=== PATIENT | male | born 1965 ===

== ENCOUNTER 2018-09-09 12:01 | Outpatient (CLI) | payer BC ==
[~2018-09-09] VITALS: Ht 175.3 cm; Wt 103.4 kg
[2018-09-09] MEDS ORDERED: FISH1CAP15 PO (12:17)
[2018-09-09] MEDS ORDERED: MULT-974 PO (12:17)
[2018-09-09] MEDS ORDERED: GLUC-116 PO (12:17)
[2018-09-09] MEDS ORDERED: ASCO500T6 PO (12:17)
[2018-09-09] MEDS ORDERED: ACET-2650 PO (12:17)
[2018-09-09 12:21] VITALS: BP 130/83
--- NOTE | 2018-09-09 12:42 | Diagnostic Imaging Report ---
INDICATION: Preoperative evaluation for total right knee replacement. COMPARISON: None. FINDINGS: Frontal and lateral views of the chest demonstrate normal heart size and pulmonary vascularity. The lungs are clear. There are no signs of infiltrate, pleural effusions or pneumothoraces. The visualized osseous structures show no acute abnormalities. IMPRESSION: 1. No acute process. No signs of infiltrates, effusions or pneumothoraces. Dictated by: Dictated on workstation # [id number]
[2018-09-09 13:08] LABS: BILIRUBIN,URINE NEGATIVE (NEGATIVE); CLARITY,URINE CLEAR; COLOR,URINE YELLOW; GLUCOSE, URINE (UA) NEGATIVE (NEGATIVE); KETONES,URINE NEGATIVE (NEGATIVE); LEUKOCYTE ESTERASE ,URINE NEGATIVE (NEGATIVE); NITRITE,URINE NEGATIVE (NEGATIVE); PH,URINE 7 (5-9); PROTEIN,URINE NEGATIVE (NEGATIVE); UROBILINOGEN,URINE NORMAL (NORMAL)
[2018-09-09 13:09] LABS: BASOPHILS % (AUTO) 0 % (0-10); EOSINOPHILS # (AUTO) 0.3 10^3/uL (0.0-0.3); EOSINOPHILS % (AUTO) 4 % (0-10); HEMATOCRIT 46 % (40-54); HEMOGLOBIN 16.3 G/DL (13.3-17.7); LYMPHOCYTES # (AUTO) 3.1 X 10^3 (1.0-4.0); LYMPHOCYTES % (AUTO) 36 % (12-44); MEAN CORPUSCULAR HEMOGLOBIN 33 PG (25-34); MEAN CORPUSCULAR HGB CONC 35 G/DL (32-36); MEAN CORPUSCULAR VOLUME 93 FL (80-99); MEAN PLATELET VOLUME 9.2 FL (7.4-10.4); MONOCYTES # (AUTO) 0.4 X 10^3 (0.0-1.0); MONOCYTES % (AUTO) 5 % (0-12); NEUTROPHILS # (AUTO) 4.8 X 10^3 (1.8-7.8); NEUTROPHILS % (AUTO) 55 % (42-75); PLATELET COUNT 258 10^3/uL (130-400); RED CELL DISTRIBUTION WIDTH 13.2 % (10.0-14.5); WHITE BLOOD COUNT 8.7 10^3/uL (4.3-11.0)
[2018-09-09 13:19] LABS: INR 0.9 (0.8-1.4); PROTHROMBIN TIME PATIENT 12.1 SEC (12.2-14.7)
[2018-09-09 13:26] LABS: ALANINE AMINOTRANSFERASE 68 U/L (0-55); ALBUMIN 4.6 GM/DL (3.2-4.5); ALKALINE PHOSPHATASE 97 U/L (40-136); BILIRUBIN,TOTAL 0.5 MG/DL (0.1-1.0); BUN/CREATININE RATIO 19; CALCIUM 9.8 MG/DL (8.5-10.1); CARBON DIOXIDE 22 MMOL/L (21-32); CHLORIDE 108 MMOL/L (98-107); CREATININE SERUM 0.93 MG/DL (0.60-1.30); GFR ESTIMATED > 60; GLUCOSE 92 MG/DL (70-105); POTASSIUM 4.1 MMOL/L (3.6-5.0); SODIUM 139 MMOL/L (135-145); TOTAL PROTEIN 7.7 GM/DL (6.4-8.2)
[2018-09-09 13:28] LABS: AMORPHOUS SEDIMENT,UR FEW AMOR URATES /LPF; BACTERIA,URINE NEGATIVE /HPF
[2018-09-09 13:41] LABS: ERYTHROCYTE SEDIMENTATION RATE 4 MM/HR (0-30)
== END 2018-09-09 16:00 | disposition home or self-care (01) ==
LOC: PREOP 12:01
PROVIDERS: ATTEND Orthopaedic Surgery
DX: Z01.811 Encounter for preprocedural respiratory examination (principal); Z01.812 Encounter for preprocedural laboratory examination; Z11.2 Encounter for screening for other bacterial diseases; M17.11 Unilateral primary osteoarthritis, right knee; R53.83 Other fatigue
CPT/HCPCS: 36415; 71046; 80053; 81000; 85025; 85610; 85652; 86850; 86900; 86901; 87081

== ENCOUNTER 2018-09-15 06:00 | Inpatient (IN) | payer BC ==
--- NOTE | 2018-09-06 11:13 | HISTORY AND PHYSICAL ---
DATE OF SERVICE: 09/15/2018 DATE OF ADMISSION: 09/15/2018. This will be for inpatient admission on 09/15/2018 for right total knee arthroplasty. The patient will require regular inpatient admission due to pain management, gait abnormalities, weakness and need for physical therapy. HISTORY OF PRESENT ILLNESS: The patient is a 52-year-old gentleman with complaints of progressive worsening right knee pain. He has undergone arthroscopy in the past. He has also undergone injections with only temporary relief of the symptoms. He reports functional impairment in his knee. He reports no improvement with conservative measures and because of this, he has elected to proceed with surgical intervention. Radiographs reveals complete loss of medial joint space with moderate patellofemoral joint space narrowing and mild lateral joint space narrowing. REVIEW OF SYSTEMS: No chest pain, no shortness of breath. No dysuria. PAST MEDICAL HISTORY: Hyperlipidemia, sleep apnea. PAST SURGICAL HISTORY: Right knee arthroscopy and left toenail excision. FAMILY HISTORY: Significant for Parkinson's, coronary atherosclerosis, no local physician. MEDICATIONS: None. ALLERGIES: None. SOCIAL HISTORY: The patient denies alcohol and tobacco use. PHYSICAL EXAMINATION: GENERAL: The patient is well developed, well-nourished, in no acute distress. HEENT: Normocephalic, atraumatic. Pupils equal, round and reactive to light. Oropharynx is clear. NECK: Supple, no lymphadenopathy. LUNGS: Clear to auscultation bilaterally. HEART: Regular rate and rhythm. ABDOMEN: Soft, nontender, nondistended. EXTREMITIES: The patient ambulates with an antalgic gait on the right. He is tender along his medial joint line and the right knee has a slight effusion. Range of motion is 0/0/130. He has pain medially with Scott's. Negative straight leg raise. No skin lesions. He is ligamentously stable in all planes. IMPRESSION: Right knee osteoarthritis, unresponsive to conservative measures. PLAN: Right total knee arthroplasty. The risks, benefits, options, ramifications and recovery were discussed at length with the patient. He understands and wishes to proceed. Job ID: [id number] DocumentID: [id number] Dictated Date: 09/06/2018 09:48:44 Beef Skinner Date: 09/06/2018 11:13:26 Dictated By: CAMACHO CASILLAS MD
[~2018-09-15] VITALS: Ht 175.3 cm; Wt 99.1 kg
[2018-09-15 06:00] VITALS: BP 130/88
[~2018-09-15 06:00] MED LIST: ACET-2650 PO; ASCO500T6 PO; FISH1CAP15 PO; GLUC-116 PO; MULT-974 PO
[2018-09-15] MEDS: LACTATED RINGERS 1,000 ML IV PRN ×2 (06:15→08:00)
[2018-09-15 06:25] VITALS: BP 130/88
[2018-09-15] MEDS ORDERED: CEFUROXIME INJECTION 1,500 MG in WATER (STERILE) FOR INJECTION 15 ML IV ONE (06:45)
[2018-09-15] MEDS ORDERED: fentaNYL INJECTION 100 MCG/2 ML AMP ONE ×2 (06:51→07:58)
[2018-09-15] MEDS ORDERED: MIDAZOLAM 2 MG/2 ML (VERSED) VIAL ONE (06:51)
[2018-09-15] MEDS ORDERED: LIDOCAINE PF 2% 5 ML (XYLOCAINE) VIAL ONE (06:51)
[2018-09-15] MEDS ORDERED: SEVOFLURANE (ULTANE) 15 ML INHAL SOLN ONE ×6 (06:51→09:10)
[2018-09-15] MEDS ORDERED: ONDANSETRON 4 MG/2 ML (SDV) Z0FRAN ONE (06:51)
[2018-09-15] MEDS ORDERED: DEXAMETHASONE 10 MG/ML (DECADRON) 1 ML VIAL ONE (06:51)
[2018-09-15] MEDS ORDERED: proPOfol 200 MG/20 ML (DIPRIVAN) VIAL IV ONE (06:51)
[2018-09-15] MEDS ORDERED: TRANEXAMIC ACID 100 MG/ML 10 ML INJECTION IV ONE (06:51)
[2018-09-15] MEDS ORDERED: BUPIVACAINE 0.5% 30 ML (SENSORCAINE) VIAL ONE (07:22)
--- NOTE | 2018-09-15 07:27 | Progress Note-Pre Operative ---
Pre-Operative Progress Note H&P Reviewed The H&P was reviewed, patient examined and no changes noted. Date Seen by Provider: Sep 15, 2018 Time Seen by Provider: 07:15 Date H&P Reviewed: Sep 15, 2018 Time H&P Reviewed: 07:11 Pre-Operative Diagnosis: right knee primary osteoarthritis CAMACHO CASILLAS MD Sep 15, 2018 07:27
--- NOTE | 2018-09-15 07:28 | Progress Note-Post Operative ---
Post-Operative Progess Note Surgeon (s)/Buttermilk Drier Operator (s) Surgeon CAMACHO CASILLAS MD Buttermilk Drier Operator: French Chavez Pre-Operative Diagnosis right knee primary osteoarthritis Post-Operative Diagnosis right knee primary osteoarthritis Procedure & Operative Findings Date of Procedure 09/15/18 Procedure Performed/Findings right total knee arthroplasty Anesthesia Type GETA Estimated Blood Loss Estimated blood loss (mL): minimal Specimens/Packing Specimens Removed none Packing: none CAMACHO CASILLAS MD Sep 15, 2018 07:28
[2018-09-15] MEDS ORDERED: OXYC1TAB87 PO (07:29)
[2018-09-15] MEDS ORDERED: ONDANSETRON 4 MG/2 ML (SDV) Z0FRAN IVP PRN ×2 (07:30→09:15)
[2018-09-15] MEDS ORDERED: diphenhydrAMINE 50 MG/ML INJ (BENADRYL) IVP PRN (07:30)
[2018-09-15] MEDS ORDERED: ACETAMINOPHEN 325 MG TABLET PO PRN (07:30)
[2018-09-15] MEDS ORDERED: INTRA-ARTICULAR IU ONE ×5 (07:30)
[2018-09-15] MEDS ORDERED: morphine PCA 100 MG/100 ML BAG IV PRN (07:30)
--- NOTE | 2018-09-15 07:32 | D/C HH Face to Face Order ---
D/C Face to Face Orders Instructions for Patient Via [facility], Patient Instructions/FollowUp: three weeks Physician to follow Patient: three weeks Discharge Diet for Home: Regular Diet Patient Data-Allergies,Ht & Wt Patient Allergies: Coded Allergies: No Known Drug Allergies (Unverified , 09/09/18) Height (Feet): 5 Height (Inches): 9.00 Weight (Pounds): 218 Weight (Ounces): 6.0 Home Health Need/Face to Face Date of Face to Face: Sep 15, 2018 Clinical Findings: Instability, Muscle weakness, Non or partial weight bearing , Pain with ambulation, Unsteady gait I have seen Pt [id number]: Yes Discharged To: Home Diagnosis/Conditions: right total knee arthroplasty Patient is Homebound due to: Larry fall risk due to instabilty, Muscle weakness , Pain w/ambulation Homebound Status Due to the above stated illness, injury or surgical procedure (medical condition or diagnosis) and associated clinical findings, the patient is homebound because of his/her inability to leave home except with aid of a supportive device and/or person AND leaving the home requires a considerable and taxing effort or is medically contraindicated. Pt req the following assistanc: Walker Home Health Nursing Orders Home Health Services Order: Physical Therapy-Evaluate & Treat DC right knee cristiano and apply steri strips 09/29/18 Home Health Infusion Therapy Line Start Date: Sep 15, 2018 Line Start Time: 06 Line Type: Peripheral IV Site Location: Hand Therapy Orders Therapy Orders: Physical Therapy, PT to assess for OT Therapy Specific Orders: Eval assistive deivces, Teach enviro modifications/ safety, Gait training, Increase strength/endurance, Provider maintenance therapy , Restore ROM Certify Stmt I certify that this patient is under my care and that I, a nurse practitioner or a physician; a field research assistant working with me, had a face to face encounter that - meets the physician face to face encounter requirements with this patient as dated. CAMACHO CASILLAS MD Sep 15, 2018 07:32
[2018-09-15] MEDS ORDERED: RT-ALBUTEROL HFA (VENTOLIN) PER PUFF IH ONE (08:11)
[2018-09-15] MEDS ORDERED: morphine INJ 10 MG/ML 1ML (SYR OR VIAL) IVP ONE (09:15)
[2018-09-15] MEDS ORDERED: morphine INJ 10 MG/ML 1ML (SYR OR VIAL) ONE (09:18)
[2018-09-15] MEDS ORDERED: MEPERIDINE (DEMEROL) INJ 50 MG/ML ONE (09:21)
--- NOTE | 2018-09-15 10:04 | Diagnostic Imaging Report ---
INDICATION: Status post right knee replacement COMPARISON: None. FINDINGS: Two views of the right knee were obtained. Expected postoperative changes are seen from right knee total arthroplasty. Femoral and tibial components appear well-seated. There is no evidence of periprosthetic fracture. There is a small amount of subcutaneous emphysema in the soft tissues over the knee. Skin cristiano are seen centrally over the anterior aspect of the knee. No unexpected radiopaque foreign bodies are identified. IMPRESSION: Expected postsurgical changes from right knee total arthroplasty, as described above. No unexpected radiopaque foreign bodies. Dictated by: Dictated on workstation # [id number]
--- NOTE | 2018-09-15 10:14 | Progress Note-Standard ---
Standard Progress Note Progress Notes/Assess & Plan Date Seen by a Provider: Sep 15, 2018 Time Seen by a Provider: 10:01 Progress/Assessment & Plan post op check no complaints radiographs--HW well positioned without fracture RLE-- 2 plus DP pulse with brisk cap refill. Sensation intact throughout. Intact DF and PF of toes and ankle s/p RTKA mobilize as able CAMACHO CASILLAS MD Sep 15, 2018 10:14
[2018-09-15] MEDS: SENNA W/DOCUSATE (SENOKOT S) TABLET PO SCH ×2 (13:12→20:36)
--- NOTE | 2018-09-15 14:04 | OPERATIVE REPORT ---
DATE OF SERVICE: 09/15/2018 PREOPERATIVE DIAGNOSIS: Right knee primary osteoarthritis. POSTOPERATIVE DIAGNOSIS: Right knee primary osteoarthritis. PROCEDURE: Right total knee arthroplasty. SURGEON: Carlos Casillas MD MANAGER ASSET: CHEYENNE Diaz, who assisted throughout the procedure and closed the incision. ANESTHESIA: General endotracheal by Radha Oropeza CRNA. TOURNIQUET TIME: Approximately 65 minutes at 300 mmHg. ESTIMATED BLOOD LOSS: Minimal. DRAINS: None. COMPLICATIONS: None. POSTOPERATIVE PLAN: Routine protocol. MATERIALS: MicroPort cemented size 5 femur with cemented size 5 tibia and 10 mm insert and cemented size 32 patellar button. STATEMENT OF MEDICAL NECESSITY: The patient is a 52-year-old gentleman with long-standing progressive right knee pain, swelling, catching and locking. Radiographs revealed complete loss of medial and patellofemoral joint spaces. He has undergone treatment in the past with arthroscopy as well as injections, but reported progressive functional impairment and because of this, elected to proceed with surgical intervention. DESCRIPTION OF PROCEDURE: After risks and benefits of the procedure were discussed and questions were answered, an informed consent was signed and placed on chart, the operative site was confirmed in the preoperative holding area initialed by the surgeon. The patient was transferred to the operating room. After adequate levels of general endotracheal anesthetic were obtained, a timeout was called confirming the operative site. The right lower extremity was prepped and draped in the usual sterile fashion with the leg elevated and the knee flexed. Tourniquet was inflated to 300 mmHg. Standard anterior approach was utilized. Hemostasis was obtained with cautery and a medial parapatellar arthrotomy was performed leaving 1 cm cuff on the patella for later reattachment. A portion of the fat pad was resected and a subperiosteal release was performed in the proximal medial tibia being careful to stay on the bony surface. ACL was resected. Intramedullary guide was passed into the femur and the distal cutting block was placed. Distal cut was made and the femur was sized to a size 5. The 5 cutting block was placed parallel to the epicondylar axis and the cuts were made from posterior to anterior. A subperiosteal release was then carefully performed on the posterior distal femur, being careful to stay on the bony surface. Intramedullary guide was then passed into the tibia. The cutting block was placed and the drop venkatesh transected the intermalleolar axis. The cut was made. The five baseplate was placed and again the drop venkatesh transected the intermalleolar access. This was pinned into position and prepared with the drill and keel punch. The femoral trial was placed and the trochlear cut was made. A 10 mm insert trial was placed. The patella was prepared using the freehand technique by resecting 10 mm off the undersurface. The peg guide was placed and the peg holes were drilled. The knee was taken through a range of motion. Full extension was easily obtained greater than 120 degrees of flexion with gravity was easily obtained. There was no anterior/posterior or medial/lateral laxity in flexion or extension. The trials were removed. The joint was irrigated with pulse lavage. The periarticular block was placed in the posterior capsule, medial and lateral retinaculum extensor mechanism as well as the subcutaneous tissues. The bone ends were irrigated and dried and the tibial baseplate was cemented into position. Excess cement was removed. The superior surface was irrigated and dried and the polyethylene insert was placed. Distal femur was irrigated and dried and the femoral prosthesis was cemented into position to remove excess cement. The knee was brought out into full extension until the cement had cured. The undersurface of patella was irrigated and dried. The patellar button was cemented into position. Excess cement was removed. Once the cement had cured, the knee was taken through a range of motion with full extension easily obtained, 120 degrees of flexion with gravity was easily obtained. There was no anterior/posterior or medial/lateral laxity in flexion or extension. The joint was further irrigated with pulse lavage. Arthrotomy was closed with #2 Tevdek in [id number] interrupted fashion. The patella tracked well with no undue tension at the repair site. The subcutaneous tissues were irrigated using a total of 6 liters throughout the procedure. A 0 Vicryl was used for the deep subcutaneous tissue, 2-0 Vicryl for the superficial subcutaneous tissue, cristiano used on the skin. A soft dressing was applied. The tourniquet was deflated. The patient was transferred to recovery room awake and in stable condition. Job ID: [id number] DocumentID: [id number] Dictated Date: 09/15/2018 09:16:26 Student Development Specialist Date: 09/15/2018 14:03:13 Dictated By: CARLOS CASILLAS MD
--- NOTE | 2018-09-15 14:26 | Physical Therapy Evaluation ---
PT Evaluation-General Medical Diagnosis Admission Date Sep 15, 2018 at 06:00 Medical Diagnosis: right TKA Onset Date: Sep 15, 2018 Therapy Diagnosis Therapy Diagnosis: impaired mobility, strength, ROM, endurance Height/Weight Height (Feet): 5 Height (Inches): 9.00 Weight (Pounds): 218 Weight (Ounces): 6.0 Precautions Precautions/Isolations: Standard Precautions Referral Physician: French Chavez Reason for Referral: Evaluation/Treatment Medical History Additional Medical History PAST MEDICAL HISTORY: Hyperlipidemia, sleep apnea. PAST SURGICAL HISTORY: Right knee arthroscopy and left toenail excision. Reviewed History: Yes Social History Home: Single Level Current Living Status: Spouse Entry Into Home: Stairs With Railing PT Steps Into Home: 4 Prior/Core FIM Prior Level of Function Therapy Code Descriptions/Definitions Functional Divide Measure: 0=Not Assessed/NA 4=Minimal Assistance 1=Total Assistance 5=Supervision or Setup 2=Maximal Assistance 6=Modified Divide 3=Moderate Assistance 7=Complete Divide Therapy Quality Codes: 6 Independent with activity with or without an assistive device 5 Patient requires set up or clean up by helper. Patient completes activity by themselves 4 Supervision or touching assist (CGA). [place] provide cues , steadying assist 3 The helper provides less than half the effort to complete the activity 2 The helper provides more than half the effort to complete the activity 1 Dependent. The helper does all the effort to complete an activity 7 Patient refused to complete or attempt activity 9 The patient did not perform the activity before the current illness or injury 88 Not attempted due to Medical conditions or safety concerns Functional Abilities and Goals: Independent: Patient completed the activities by him/herself, with or without an assistive device, with no assistance from a helper. Needed Some Help: Patient needed partial assistance from another person to complete activities. Dependent: A helper completed the activities for the patient. Unknown: Not Applicable: Bed Mobility: 7 Transfers (B,C,W/C) (FIM): 7 Gait: 7 Stairs: 7 Indoor Mobility (Ambulation): Independent Stairs: Independent PT Evaluation-Current Subjective Patient in bed pre tx, agrees to PT, has pain of 4/10 in right knee. Pt/Family Goals to be independent at home Objective Patient Orientation: Person, Place, Situation Attachments: SCD's, Polar Pack, IV ROM/Strength ROM Lower Extremities right knee extension +5 degrees, flexion 70 degrees Strength Lower Extremities NT Neuromuscular (Tone, Coordination, Reflexes) NT Sensory Vision: Functional Hearing: Functional Sensation Right Lower Extremit: Intact Sensation Left Lower Extremity: Intact Transfers Therapy Code Descriptions/Definitions Functional Divide Measure: 0=Not Assessed/NA 4=Minimal Assistance 1=Total Assistance 5=Supervision or Setup 2=Maximal Assistance 6=Modified Divide 3=Moderate Assistance 7=Complete Divide Transfers (B, C, W/C) (FIM): 5 Scootin Rollin Supine to/from Sit: 5 Sit to/from Stand: 5 Gait Mode of Locomotion: Walk Anticipated Mode of Locomotion: Walk Gait (FIM): 5 Distance: 300' Gait Level of Assist: 5 Gait Persons Needed: 1 Gait Assistive Device: FWW Comments/Gait Description Patient ambulated 300' with a rolling walker with SBA. Brisk ambulation, good step-through, flexed right knee Balance Sitting Static: Normal Sitting Dynamic: Normal Standing Static: Good Standing Dynamic: Good Treatment supine total knee protocol x10 (AP, QS, HS, SAQ, SLR) Assessment/Needs Patient has impaired mobility, strength, endurance, ROM post right TKA. Patient in bed post tx with nurse call, phone, tray, all needs met. CPM donned and set to 60/-2 degrees and fit to leg. Polar care and SCD's on. Rehab Potential: Fair PT Short Term Goals Short Term Goals Time Frame: Sep 22, 2018 Transfers (B,C,W/C) (FIM): 6 Gait (FIM): 6 Gait Distance Comment: 400' Gait Level of Assist: 6 Gait Assistive Device: FWW PT Plan Problem List Problem List: Activity Tolerance, Functional Strength, Safety, Balance, Gait, Transfer, Bed Mobility, ROM Treatment/Plan Treatment Plan: Continue Plan of Care Treatment Plan: Bed Mobility, Education, Functional Activity Wesley, Functional Strength, Safety, Therapeutic Exercise, Transfers Treatment Duration: Sep 22, 2018 Frequency: 11 times per week Estimated Hrs Per Day: .25 hour per day (15-30') Patient and/or Family Agrees t: Yes Safety Risks/Education Patient Education: Gait Training, Transfer Techniques, Reviewed Use of Ice, Correct Positioning, W/C Management, Safety Issues Teaching Recipient: Patient Teaching Methods: Demonstration, Discussion Response to Teaching: Reinforcement Needed Discharge Recommendations Plan Patient will perform bed mobility and transfer training, balance and endurance training, functional strengthening, stair training, gait training, and education , to improve functional mobility and independence at home. Therapy D/C Recommendations: Home w/ Family Support Time/GCodes Time In: 1355 Time Out: 1415 Total Billed Treatment Time: 20 Total Billed Treatment 1 visit EVMark 20' LEO CALABRESE PT Sep 15, 2018 14:26
[2018-09-15] MEDS: CEFUROXIME INJECTION 750 MG in WATER (STERILE) FOR INJECTION 10 ML IV SCH ×2 (15:47→23:41)
--- NOTE | 2018-09-15 15:48 | NUR ---
Pt is Lutheran and declines sacraments. Supervisor [employer] offered blessing.
[2018-09-15 16:00] VITALS: BP 116/72
[2018-09-15 20:00] VITALS: BP 114/78
[2018-09-15] MEDS: NS IV 1000 ML 1,000 ML IV SCH ×2 (20:34→20:35)
[2018-09-15] MEDS: oxyCODONE/APAP 5/325MG (PERCOCET 5) TABLET PO PRN (23:40)
[2018-09-16 00:21] VITALS: BP 107/71
[2018-09-16] MEDS: NS IV 1000 ML 1,000 ML IV SCH ×2 (01:30→13:45)
[2018-09-16 04:00] VITALS: BP 114/60
[2018-09-16] MEDS: ENOXAPARIN 30 MG/0.3 ML (LOVENOX) SYR SC SCH ×2 (06:27→20:02)
[2018-09-16] MEDS: MULTIVIT W/MINERALS TAB (THERAGRAN M) PO SCH (06:28)
[2018-09-16 06:30] LABS: HEMOGLOBIN 12.3 G/DL (13.3-17.7)
--- NOTE | 2018-09-16 07:57 | Progress Note-Standard ---
Standard Progress Note Progress Notes/Assess & Plan Date Seen by a Provider: Sep 16, 2018 Time Seen by a Provider: 07:56 Progress/Assessment & Plan post op check no complaints radiographs--HW well positioned without fracture RLE-- 2 plus DP pulse with brisk cap refill. Sensation intact throughout. Intact DF and PF of toes and ankle s/p RTKA mobilize as able Final Diagnosis no complaints Vital Signs Date Time Temp Pulse Resp B/P (MAP) Pulse Ox O2 Delivery O2 Flow Rate FiO2 09/16/18 06:00 16 09/16/18 04:00 97.6 76 20 114/60 (78) 99 Room Air 09/16/18 03:08 95 NIV CPAP 09/16/18 00:21 97.4 74 20 107/71 (83) 97 Room Air 09/15/18 22:49 95 Room Air 09/15/18 20:30 96 Room Air 09/15/18 20:30 98 Room Air 09/15/18 20:00 99.1 90 18 114/78 (90) 95 Room Air 09/15/18 16:00 99.6 94 20 116/72 (87) 96 Room Air 09/15/18 10:20 98 Room Air 09/15/18 10:10 12 96 Room Air 09/15/18 10:00 10 98 Room Air 09/15/18 09:50 12 100 OxyMask 8 09/15/18 09:40 18 100 OxyMask 8 09/15/18 09:30 12 100 OxyMask 8 09/15/18 09:20 14 96 OxyMask 8 09/15/18 09:13 17 96 OxyMask 8 I & O 09/16/18 07:00 Intake Total 4275 ml Balance 4275 ml Laboratory Tests Test 09/16/18 06:15 Range/Units Hemoglobin 12.3 #L 13.3-17.7 G/DL Hematocrit 37 L 40-54 % RLE--NVI. Dressing intact. SLR with assistance. No calf tenderness s/p RTKA doing well continue PT/OT CAMACHO CASILLAS MD Sep 16, 2018 07:57
[2018-09-16 08:00] VITALS: BP 127/63
[2018-09-16] MEDS: ASPIRIN E.C. 81 MG (ECOTRIN) TAB PO SCH ×2 (08:34→08:35)
[2018-09-16] MEDS: SENNA W/DOCUSATE (SENOKOT S) TABLET PO SCH ×2 (08:35→20:02)
[2018-09-16] MEDS: oxyCODONE/APAP 5/325MG (PERCOCET 5) TABLET PO PRN ×4 (08:41→21:50)
--- NOTE | 2018-09-16 10:04 | Physical Therapy Daily Note ---
PT Daily Note-Current Subjective Patient is very agreeable to participate with PT. Pain Numeric Pain Scale: 5-Moderate Pain Location: Right Location Body Site: Knee Pain Description: Acute Mental Status Patient Orientation: Normal For Age Attachments: Polar Pack, IV Transfers Therapy Code Descriptions/Definitions Functional Barker Measure: 0=Not Assessed/NA 4=Minimal Assistance 1=Total Assistance 5=Supervision or Setup 2=Maximal Assistance 6=Modified [place] 3=Moderate Assistance 7=Complete Barker Therapy Quality Codes: 6 Independent with activity with or without an assistive device 5 Patient requires set up or clean up by helper. Patient completes activity by themselves 4 Supervision or touching assist (CGA). [place] provide cues , steadying assist 3 The helper provides less than half the effort to complete the activity 2 The helper provides more than half the effort to complete the activity 1 Dependent. The helper does all the effort to complete an activity 7 Patient refused to complete or attempt activity 9 The patient did not perform the activity before the current illness or injury 88 Not attempted due to Medical conditions or safety concerns Transfers (B, C, W/C) (FIM): 6 Scootin Supine to/from Sit: 6 Sit to/from Stand: 6 Gait Training Gait (FIM): 6 Distance (FIM): 3=150 ft Distance: 300' x 2 Gait Level of Assist: 6 Gait Assistive Device: FWW antalgic, reciprocal pattern with FWW Exercises Supine Ex: Ankle pumps, Quad Set, Heel Slides, Straight leg raise Supine Reps: 15 Seated Therapy Exercises: Long arc quads Seated Reps: 15 Assessment Patient tolerated treatment well and is on CPM 0-70 degrees with polar pack in place. PT Short Term Goals Short Term Goals Time Frame: Sep 22, 2018 Transfers (B,C,W/C) (FIM): 6 Gait (FIM): 6 Gait Distance Comment: 400' Gait Level of Assist: 6 Gait Assistive Device: FWW PT Plan Treatment/Plan Treatment Plan: Continue Plan of Care Treatment Plan: Bed Mobility, Education, Functional Activity Wesley, Functional Strength, Safety, Therapeutic Exercise, Transfers Treatment Duration: Sep 22, 2018 Frequency: 11 times per week Estimated Hrs Per Day: .25 hour per day (15-30') Patient and/or Family Agrees t: Yes Time/GCodes Time In: 830 Time Out: 900 Total Billed Treatment Time: 30 Total Billed Treatment 1 visit EX 18 min GT 12 min CORRIE EDWARDS PT Sep 16, 2018 10:04
[2018-09-16 12:00] VITALS: BP 127/68
--- NOTE | 2018-09-16 13:09 | Occupational Therapy Eval ---
OT Evaluation-General/PLF Medical Diagnosis Admission Date Sep 15, 2018 at 06:00 Medical Diagnosis: right TKA Onset Date: Sep 15, 2018 Therapy Diagnosis Therapy Diagnosis: weakness Height/Weight Height (Feet): 5 Height (Inches): 9.00 Weight (Pounds): 218 Weight (Ounces): 6.0 Precautions Precautions/Isolations: Fall Prevention, Standard Precautions Safety Interventions: None Weight Bear Status Weight Bearing Restriction: Weight Bearing/Tolerated Location Restriction: R LE Referral Physician: French Chavez Referral Reason: Activity Tolerance, Self Care, Evaluation/Treatment, Strengthening/ROM Referral Comments The patient is a 52-year-old gentleman with complaints of progressive worsening right knee pain. He has undergone arthroscopy in the past. Medical History Additional Medical History HLD, Sleep Apnea Current History Right Total Knee Arthroplasty. Reviewed History: Yes Social History Home: Single Level Current Living Status: Spouse Entry Into Home: Stairs With Railing Steps Into Home: 4 ADL-Prior Level of Function Therapy Code Descriptions/Definitions Functional [place] Measure: 0=Not Assessed/NA 4=Minimal Assistance 1=Total Assistance 5=Supervision or Setup 2=Maximal Assistance 6=Modified [place] 3=Moderate Assistance 7=Complete [place] Therapy Quality Codes: 6 Independent with activity with or without an assistive device 5 Patient requires set up or clean up by helper. Patient completes activity by themselves 4 Supervision or touching assist (CGA). [place] provide cues , steadying assist 3 The helper provides less than half the effort to complete the activity 2 The helper provides more than half the effort to complete the activity 1 Dependent. The helper does all the effort to complete an activity 7 Patient refused to complete or attempt activity 9 The patient did not perform the activity before the current illness or injury 88 Not attempted due to Medical conditions or safety concerns Functional Abilities and Goals: Independent: Patient completed the activities by him/herself, with or without an assistive device, with no assistance from a helper. Needed Some Help: Patient needed partial assistance from another person to complete activities. Dependent: A helper completed the activities for the patient. Unknown: Not Applicable: ADL PLOF Comments Pt was Independent in all ADLs & IADLs & Driving. Self Care: Needed Some Help Functional Cognition: Independent Drive Self: Yes OT Current Status Subjective Pt in bed , alert, oriented, cooperative , & agree for therapy . Pain Numeric Pain Scale: 3 Location: Right Location Body Site: Knee Pain Description: Dull, Pressure Mental Status/Objective Patient Orientation: Person, Place, Time Attachments: Polar Pack, Saline Lock, SCD's Current Glasses/Contacts: No Hearing Aids: No Dentures/Partials: No Hand Dominance: Right Upper Extremity ROM WFL Upper Extremity Coordination Intact Upper Extremity Sensation Intact Upper Extremity Strength MS in BUE 4+/5 grossly graded , Good physique . Hand delivery route driver -good. Endurance good. ADL-Treatment ADL-Current Pt participated in bed mobility, func transfers, toilet transfers & toilet hygiene, func ambulation with FWW & Strengthening ex to BUE. Therapy Code Descriptions/Definitions Functional [place] Measure: 0=Not Assessed/NA 4=Minimal Assistance 1=Total Assistance 5=Supervision or Setup 2=Maximal Assistance 6=Modified [place] 3=Moderate Assistance 7=Complete [place] Therapy Quality Codes: 6 Independent with activity with or without an assistive device 5 Patient requires set up or clean up by helper. Patient completes activity by themselves 4 Supervision or touching assist (CGA). [place] provide cues , steadying assist 3 The helper provides less than half the effort to complete the activity 2 The helper provides more than half the effort to complete the activity 1 Dependent. The helper does all the effort to complete an activity 7 Patient refused to complete or attempt activity 9 The patient did not perform the activity before the current illness or injury 88 Not attempted due to Medical conditions or safety concerns Eating (FIM): 7 Grooming (FIM): 7 Bathing (FIM): 0 Upper Body Dressing (FIM): 6 Lower Body Dressing (FIM): 5 Toileting (FIM): 5 Transfers (B, C, W/C) (FIM): 5 Toilet/Commode Transfer (FIM): 5 Tub Transfer (FIM): 0 Shower Transfer (FIM): 0 Education OT Patient Education: Correct positioning Teaching Recipient: Patient Teaching Methods: Demonstration Response to Teaching: Verbalize Understanding OT Short Term Goals Short Term Goals Time Frame: Sep 30, 2018 Transfers (B,C,W/C) (FIM): 6 Additional Short Term Goals: 1-Demonstrate ADL Tasks, 2-Verbalize Understanding , 3-ImproveStrength/[place] 1=Demonstrate adherence to instructed precautions during ADL tasks. 2=Patient will verbalize/demonstrate understanding of assistive devices/ modifications for ADL. 3=Patient will improve strength/tolerance for activity to enable patient to perform ADL's. OT Jail Goals Jail Goals Time Frame: October 14, 2018 Eating (FIM): 7 Grooming(FIM): 7 Bathing(FIM): 6 Bathing Location: L Arm, R Arm, L Upper Leg, R Upper Leg, L Lower Leg ( including foot), R Lower Leg (including foot), Chest, Abdomen, Buttocks, Perineal Area Upper Body Dressing(FIM): 6 Lower Body Dressing(FIM): 6 Toileting(FIM): 6 Transfers (B,C,W/C) (FIM): 6 Toilet/Commode Transfer(FIM): 6 Tub Transfer(FIM): 6 Shower Transfer(FIM): 6 Additional Goals: 1-Demonstrate ADL Tasks, 2-Verbalize Understanding, 3- ImproveStrength/[place] 1=Demonstrate adherence to instructed precautions during ADL tasks. 2=Patient will verbalize/demonstrate understanding of assistive devices/ modifications for ADL. 3=Patient will improve strength/tolerance for activity to enable patient to perform ADL's. OT Education/Plan Problem List/Assessment Assessment: Decreased Activ Tolerance, Decreased Safety Aware, Decreased UE Strength, Dependent Transfers, Impaired Bed Mobility, Impaired Funct Balance, Impaired Self-Care Skills Discharge Recommendations Plan/Recommendations: Continue POC Therapy D/C Recommendations: Home w/ Family Support Equpiment Recommendations-D/C: Masonry Installer, [place] Patient/Family Goals To return home Independently with . Treatment Plan/Plan of Care Treatment,Training & Education: Yes Patient would benefit from OT for education, treatment and training to promote independence in ADL's, mobility, safety and/or upper extremity function for ADL' s. Plan of Care: ADL Retraining, Functional Mobility, UE Funct Exercise/Act, UE Neuromus Re-Ed/Coord Treatment Duration: October 14, 2018 Frequency: 5 times per week Estimated Hrs Per Day: .5 hour per day Agreement: Yes Rehab Potential: Good Time/GCodes Start Time: 11:05 Stop Time: 11:30 Total Time Billed (hr/min): 25 Billed Treatment Time 1, EVM 12 min , Ex 13 min. Total 25 minutes ALEJANDRO CMLAUGHLIN OT Sep 16, 2018 13:09
--- NOTE | 2018-09-16 13:10 | NUR ---
IRF Evaluation: Order to evaluate patient for the ARU. Chart reviewed and it appears patient is ambulating (300ft x 2, FWW) and transferring with modified independence; therefore, patient does not require intensive therapies, at this time. Thank you for this referral.
--- NOTE | 2018-09-16 13:53 | Anesthesia-General Post-Op ---
General Patient Condition Mental Status/LOC: Same as Preop Cardiovascular: Satisfactory Nausea/Vomiting: Absent Respiratory: Satisfactory Pain: Controlled Complications: Absent Post Op Complications Complications None Follow Up Care/Instructions Patient Instructions None needed. Anesthesia/Patient Condition Patient Condition Patient is doing well, no complaints, stable vital signs, no apparent adverse anesthesia problems. Pt is having more pain today now that peripheral nerve block has worn off, which is expected. He is ambulating and doing well with his pain control. CECILLE FREITAS DO Sep 16, 2018 13:53
--- NOTE | 2018-09-16 13:53 | Physical Therapy Daily Note ---
PT Daily Note-Current Subjective Patient reports he just had a pain pill and agrees to PT. Pain Numeric Pain Scale: 5-Moderate Pain Location: Right Location Body Site: Knee Pain Description: Acute Mental Status Patient Orientation: Normal For Age Attachments: IV Transfers Therapy Code Descriptions/Definitions Functional [place] Measure: 0=Not Assessed/NA 4=Minimal Assistance 1=Total Assistance 5=Supervision or Setup 2=Maximal Assistance 6=Modified [place] 3=Moderate Assistance 7=Complete [place] Therapy Quality Codes: 6 Independent with activity with or without an assistive device 5 Patient requires set up or clean up by helper. Patient completes activity by themselves 4 Supervision or touching assist (CGA). [place] provide cues , steadying assist 3 The helper provides less than half the effort to complete the activity 2 The helper provides more than half the effort to complete the activity 1 Dependent. The helper does all the effort to complete an activity 7 Patient refused to complete or attempt activity 9 The patient did not perform the activity before the current illness or injury 88 Not attempted due to Medical conditions or safety concerns Transfers (B, C, W/C) (FIM): 6 Scootin Supine to/from Sit: 6 Sit to/from Stand: 6 Gait Training Gait (FIM): 6 Distance (FIM): 3=150 ft Distance: 300 x 2 Gait Level of Assist: 6 Gait Assistive Device: FWW antalgic, functional gait sequence Exercises Supine Ex: Ankle pumps, Quad Set, Heel Slides, Straight leg raise Supine Reps: 15 Seated Therapy Exercises: Long arc quads Seated Reps: 15 Assessment Patient progressing with treatment plan and will dismiss to home tomorrow with spouse. PT Short Term Goals Short Term Goals Time Frame: Sep 22, 2018 Transfers (B,C,W/C) (FIM): 6 Gait (FIM): 6 Gait Distance Comment: 400' Gait Level of Assist: 6 Gait Assistive Device: FWW PT Plan Treatment/Plan Treatment Plan: Continue Plan of Care Treatment Plan: Bed Mobility, Education, Functional Activity [place], Functional Strength, Safety, Therapeutic Exercise, Transfers Treatment Duration: Sep 22, 2018 Frequency: 11 times per week Estimated Hrs Per Day: .25 hour per day (15-30') Patient and/or Family Agrees t: Yes Time/GCodes Time In: 1300 Time Out: 1325 Total Billed Treatment Time: 25 Total Billed Treatment 1 visit EX 17 min GT 8 min CORRIE EDWARDS PT Sep 16, 2018 13:53
--- NOTE | 2018-09-16 15:08 | NUR ---
CM/SS met with the patient for discharge planning. The patient plans to do outpatient physical therapy with Duarte Schaffer, he stated that it is already set up and he will begin on Thursday. Patient also has crutches he intends to use and if he needs a walker can borrow one from his mother in law. Patient did not feel he had any discharge needs. Will continue to follow.
[2018-09-16 15:46] VITALS: BP 125/74
--- NOTE | 2018-09-16 17:27 | NUR ---
R/T STAFFING, REPORT TO DENISE SOLER.
--- NOTE | 2018-09-16 17:39 | NUR ---
gave 2 tablets rating pain at [address] Flower
[2018-09-16 20:00] VITALS: BP 125/72
[2018-09-17 00:10] VITALS: BP 115/65
[2018-09-17] MEDS: NS IV 1000 ML 1,000 ML IV SCH (02:22)
[2018-09-17] MEDS: oxyCODONE/APAP 5/325MG (PERCOCET 5) TABLET PO PRN ×2 (02:23→06:25)
--- NOTE | 2018-09-17 02:55 | DISCHARGE SUMMARY ---
DATE OF SERVICE: DATE OF DISCHARGE: 09/17/2018 DIAGNOSES: 1. Right knee primary osteoarthritis. 2. Hyperlipidemia. 3. Sleep apnea. PROCEDURE: Right total knee arthroplasty. SUMMARY: The patient is a 52-year-old gentleman who underwent a right total knee arthroplasty on the day of admission. Postoperatively, he did very well. At the time of discharge, his wound was clean and dry and no calf tenderness. Negative Homans sign. He was tolerating diet well and tolerating pain with oral pain medication. CONDITION AT DISCHARGE: Good. DISCHARGE DIET: Regular. DISCHARGE MEDICATIONS: Home medications, aspirin one per day for one month and Percocet as needed for pain. ACTIVITY: Weightbearing as tolerated with assistive devices as needed. FOLLOWUP: Followup is in three weeks. Home physical therapy has been arranged. Job ID: [id number] DocumentID: [id number] Dictated Date: 09/16/2018 11:51:07 Kitchen Runner Date: 09/17/2018 02:54:44 Dictated By: CAMACHO CASILLAS MD
[2018-09-17 04:00] VITALS: BP 120/76
[2018-09-17 06:04] LABS: HEMOGLOBIN 12.8 G/DL (13.3-17.7)
[2018-09-17] MEDS: MULTIVIT W/MINERALS TAB (THERAGRAN M) PO SCH (06:24)
[2018-09-17] MEDS: ENOXAPARIN 30 MG/0.3 ML (LOVENOX) SYR SC SCH (06:33)
--- NOTE | 2018-09-17 06:55 | Progress Note-Standard ---
Standard Progress Note Progress Notes/Assess & Plan Date Seen by a Provider: Sep 17, 2018 Time Seen by a Provider: 06:54 Progress/Assessment & Plan post op check no complaints radiographs--HW well positioned without fracture RLE-- 2 plus DP pulse with brisk cap refill. Sensation intact throughout. Intact DF and PF of toes and ankle s/p RTKA mobilize as able Final Diagnosis no complaints Vital Signs Date Time Temp Pulse Resp B/P (MAP) Pulse Ox O2 Delivery O2 Flow Rate FiO2 09/17/18 04:00 99.1 97 20 120/76 (91) 95 NIV CPAP 09/17/18 02:24 95 Room Air 09/17/18 00:10 99.4 94 20 115/65 (82) 97 NIV CPAP 09/16/18 22:30 97 NIV CPAP 09/16/18 21:51 99.0 09/16/18 20:00 100.1 101 20 125/72 (89) 94 Room Air 09/16/18 20:00 98 Room Air 09/16/18 19:40 95 Room Air 09/16/18 17:26 16 09/16/18 15:46 100.0 108 18 125/74 (91) 99 Room Air 09/16/18 12:00 99.9 108 18 127/68 (87) 96 Room Air 09/16/18 08:06 97 Room Air 09/16/18 08:00 16 09/16/18 08:00 98.9 89 18 127/63 (84) 97 Room Air 09/16/18 08:00 Room Air I & O 09/17/18 07:00 Intake Total 4520 ml Balance 4520 ml Laboratory Tests Test 09/17/18 05:40 Range/Units Hemoglobin 12.8 L 13.3-17.7 G/DL Hematocrit 38 L 40-54 % RLE--incision clean and dry. echymotic. No calf tenderness. Neg Tammie's s/p RTKA doing well DC after PT today CAMACHO CASILLAS MD Sep 17, 2018 06:55
[2018-09-17] MEDS ORDERED: morphine INJ 4 MG/ML 1 ML (VIAL/SYRINGE) IVP PRN (07:00)
[2018-09-17 08:00] VITALS: BP 122/67
--- NOTE | 2018-09-17 08:00 | NUR ---
DERRICK BOAT CAPTAIN DISCONTINUED. 87 ML WASTED WITNESSED BY RYDER ROSAS
[2018-09-17] MEDS: ASPIRIN E.C. 81 MG (ECOTRIN) TAB PO SCH (08:06)
[2018-09-17] MEDS: SENNA W/DOCUSATE (SENOKOT S) TABLET PO SCH (08:09)
--- NOTE | 2018-09-17 09:34 | Physical Therapy Daily Note ---
PT Daily Note-Current Subjective Patient agrees to PT. He reports he is going home on this date. Pain Numeric Pain Scale: 5-Moderate Pain Location: Right Location Body Site: Knee Pain Description: Acute Mental Status Patient Orientation: Normal For Age Transfers Therapy Code Descriptions/Definitions Functional [place] Measure: 0=Not Assessed/NA 4=Minimal Assistance 1=Total Assistance 5=Supervision or Setup 2=Maximal Assistance 6=Modified [place] 3=Moderate Assistance 7=Complete [place] Therapy Quality Codes: 6 Independent with activity with or without an assistive device 5 Patient requires set up or clean up by helper. Patient completes activity by themselves 4 Supervision or touching assist (CGA). [place] provide cues , steadying assist 3 The helper provides less than half the effort to complete the activity 2 The helper provides more than half the effort to complete the activity 1 Dependent. The helper does all the effort to complete an activity 7 Patient refused to complete or attempt activity 9 The patient did not perform the activity before the current illness or injury 88 Not attempted due to Medical conditions or safety concerns Transfers (B, C, W/C) (FIM): 6 Scootin Rollin Supine to/from Sit: 6 Sit to/from Stand: 6 Bed to/from Chair: 6 Gait Training Gait (FIM): 6 Distance (FIM): 3=150 ft Distance: 300' x 2 Gait Level of Assist: 6 Gait Assistive Device: Crutches 4 point gait Exercises Supine Ex: Ankle pumps, Quad Set, Heel Slides, Straight leg raise Supine Reps: 15 Seated Therapy Exercises: Long arc quads Seated Reps: 15 Assessment Patient is progressing with treatment plan and will dismiss to home on this date. He is to begin outpatient PT on Thursday. PT Short Term Goals Short Term Goals Time Frame: Sep 22, 2018 Transfers (B,C,W/C) (FIM): 6 Gait (FIM): 6 Gait Distance Comment: 400' Gait Level of Assist: 6 Gait Assistive Device: FWW PT Plan Treatment/Plan Treatment Plan: Discontinue PT, goals met Treatment Plan: Bed Mobility, Education, Functional Activity [place], Functional Strength, Safety, Therapeutic Exercise, Transfers Treatment Duration: Sep 22, 2018 Frequency: 11 times per week Estimated Hrs Per Day: .25 hour per day (15-30') Patient and/or Family Agrees t: Yes Time/GCodes Time In: 820 Time Out: 844 Total Billed Treatment Time: 24 Total Billed Treatment 1 visit EX 14 min GT 10 min CORRIE EDWARDS PT Sep 17, 2018 09:34
[2018-09-17 11:07] VITALS: BP 122/67
== END 2018-09-17 11:09 | disposition home health service (06) | DRG 470 ==
LOC: UNDOADMIN 06:00 → SURG 06:00 → 4TH 06:01 → SURG 06:01 → 4TH 10:20
PROVIDERS: ADMIT Orthopaedic Surgery; ATTEND Orthopaedic Surgery
PROC: 0SRC0J9 Replacement of Right Knee Joint with Synthetic Substitute, Cemented, Open Approach (ICD-10-PCS; principal; 2018-09-15 07:30)
DX: M17.11 Unilateral primary osteoarthritis, right knee (principal); E78.5 Hyperlipidemia, unspecified; G47.30 Sleep apnea, unspecified
CPT/HCPCS: 36415; 73560; 85014; 85018; 86850; 86900; 86901; 87081; 94664; 94760

== ENCOUNTER 2019-03-06 17:24 | Emergency (ER) | payer BC ==
[~2019-03-06] VITALS: Ht 175.3 cm; Wt 94.1 kg
[~2019-03-06 17:24] MED LIST changes: +OXYC1TAB87 PO
[2019-03-06] MEDS ORDERED: morphine INJ 10 MG/ML 1ML (SYR OR VIAL) IVP STA (17:33)
--- NOTE | 2019-03-06 17:33 | ED General ---
General Stated Complaint: ABD PAIN History of Present Illness Date Seen by Provider: Mar 06, 2019 Time Seen by Provider: 17:30 Initial Comments Patient is a 52-year-old male who comes to the emergency department today complaining of lower abdominal pain. He had onset of symptoms 3 hours prior to presentation. The pain has been constant and worsening since onset. Pain is in the right lower quadrant primarily. He had some nausea but no vomiting. He denies history of similar symptoms. He has not had abdominal surgery previously. No diarrhea. No recent illness or viral symptoms. He was well until onset of symptoms. Allergies and Home Medications Allergies Coded Allergies: No Known Drug Allergies (Unverified , 09/09/18) Home Medications Acetaminophen 650 Mg Tablet.er, 1,300 MG PO BID, (Reported) Ascorbic Acid 500 Mg Tablet, 500 MG PO DAILY, (Reported) Fish Oil/Dha/Epa 1 Each Capsule, 2 EACH PO BID, (Reported) Gluc/Lyle-MSM#2/C/D3/Ramiro/Born 1 Each Tablet, 1 EACH PO BID, (Reported) Multivitamin 1 Each Tablet, 1 EACH PO DAILY, (Reported) Oxycodone HCl/Acetaminophen 1 Each Tablet, 1 TAB PO Q4H Prescribed by: CAMACHO CASILLAS on 09/15/18 5521 Patient Home Medication List Home Medication List Reviewed: Yes Review of Systems Review of Systems Constitutional: no symptoms reported EENTM: no symptoms reported Respiratory: no symptoms reported Cardiovascular: no symptoms reported Gastrointestinal: no symptoms reported, see HPI Genitourinary: no symptoms reported Musculoskeletal: no symptoms reported Skin: no symptoms reported Hematologic/Lymphatic: No Symptoms Reported Past Czvhbaz-[id number]-Mdllgo Hx Patient Social History Type Used: Cigarettes Former Smoker, Quit: Sep 15, 2014 Recent Hopitalizations: No Seasonal Allergies Seasonal Allergies: Yes Past Medical History Surgeries: Yes (RIGHT KNEE SCOPE) Respiratory: Yes Sleep Apnea Currently Using CPAP: Yes Cardiac: No Neurological: No Sexually Transmitted Disease: No HIV/AIDS: No Genitourinary: No Gastrointestinal: No Musculoskeletal: Yes (OSTEOARTHRITIS) Arthritis Endocrine: No HEENT: Yes (GLASSES) Loss of Vision: Bilateral Cancer: No Psychosocial: No Integumentary: No Blood Disorders: No Adverse Reaction/Blood Tranf: No (N/A) Physical Exam Vital Signs Capillary Refill : Height, Weight, BMI Height: 5'9.00" Weight: 218lbs. 6.0oz. 99.276027gy; 32.3 BMI Method: General Appearance: WD/WN, Other (mild distress due to pain) Eyes: Bilateral Eye Normal Inspection, Bilateral Eye PERRL HEENT: PERRL/EOMI, Normal ENT Inspection Neck: Full Range of Motion Respiratory: Chest Non Tender, Lungs Clear Cardiovascular: Regular Rate, Rhythm, No Murmur Gastrointestinal: Normal Bowel Sounds, Soft Extremity: Normal Capillary Refill, Normal Inspection Neurologic/Psychiatric: Alert, Oriented x3, Normal Mood/Affect Skin: Normal Color, Warm/Dry Progress/Results/Core Measures Suspected Sepsis SIRS Temperature: Pulse: Respiratory Rate: Laboratory Tests 03/06/19 18:00: White Blood Count 11.0 Blood Pressure / Mean: Laboratory Tests 03/06/19 18:00: Creatinine 1.09, Platelet Count 209, Total Bilirubin 0.6 Results/Orders Lab Results Laboratory Tests Test 03/06/19 18:00 Range/Units White Blood Count 11.0 4.3-11.0 10^3/uL Red Blood Count 4.61 4.35-5.85 10^6/uL Hemoglobin 15.0 13.3-17.7 G/DL Hematocrit 44 40-54 % Mean Corpuscular Volume 95 80-99 FL Mean Corpuscular Hemoglobin 33 25-34 PG Mean Corpuscular Hemoglobin Concent 34 32-36 G/DL Red Cell Distribution Width 13.0 10.0-14.5 % Platelet Count 209 130-400 10^3/uL Mean Platelet Volume 9.0 7.4-10.4 FL Neutrophils (%) (Auto) 87 H 42-75 % Lymphocytes (%) (Auto) 10 L 12-44 % Monocytes (%) (Auto) 3 0-12 % Eosinophils (%) (Auto) 0 0-10 % Basophils (%) (Auto) 0 0-10 % Neutrophils # (Auto) 9.6 H 1.8-7.8 X 10^3 Lymphocytes # (Auto) 1.1 1.0-4.0 X 10^3 Monocytes # (Auto) 0.3 0.0-1.0 X 10^3 Eosinophils # (Auto) 0.0 0.0-0.3 10^3/uL Basophils # (Auto) 0.0 0.0-0.1 10^3/uL Sodium Level 141 135-145 MMOL/L Potassium Level 3.8 3.6-5.0 MMOL/L Chloride Level 106 98-107 MMOL/L Carbon Dioxide Level 20 L 21-32 MMOL/L Anion Gap 15 H 5-14 MMOL/L Blood Urea Nitrogen 21 H 7-18 MG/DL Creatinine 1.09 0.60-1.30 MG/DL Estimat Glomerular Filtration Rate > 60 BUN/Creatinine Ratio 19 Glucose Level 142 H 70-105 MG/DL Calcium Level 9.4 8.5-10.1 MG/DL Total Bilirubin 0.6 0.1-1.0 MG/DL Direct Bilirubin < 0.2 0.0-0.3 MG/DL Indirect Bilirubin 0.4 MG/DL Aspartate Amino Transf (AST/SGOT) 17 5-34 U/L Alanine Aminotransferase (ALT/SGPT) 20 0-55 U/L Alkaline Phosphatase 85 40-136 U/L Total Protein 7.5 6.4-8.2 GM/DL Albumin 4.6 H 3.2-4.5 GM/DL Lipase 22 8-78 U/L My Orders Orders - NGHIA ARGUELLO DO Ed Iv/Invasive Line Start (03/06/19 17:28) Cbc With Automated Diff (03/06/19 17:28) Basic Metabolic Panel (03/06/19 17:28) Liver Panel (03/06/19 17:28) Lipase (03/06/19 17:28) Urinalysis (03/06/19 17:28) Ct Abdomen/Pelvis W (03/06/19 17:28) Morphine Injection (Morphine Injection (03/06/19 17:33) Iohexol Injection (Omnipaque 350 Mg/Ml 1 (03/06/19 18:00) Received Contrast (Hold Metformin- Contr (03/06/19 18:00) Sodium Chloride Flush (Catheter Flush Sy (03/06/19 18:00) Ns (Ivpb) (Sodium Chloride 0.9% Ivpb Bag (03/06/19 18:00) Manual Differential (03/06/19 18:00) Vital Signs/I&O Capillary Refill : Progress Note : Time: 17:32 Progress Note Patient is seen and examined. He does appear to have some discomfort secondary to pain. His abdominal exam is revealing for diffuse tenderness that is not significantly worsened by palpation. Standard abdominal pain workup is ordered. We'll give medication for pain. Patient received 4 mg of Zofran via EMS and route to the ER. 18:25: SONALI to Dr. Bingham CT and labs pending. Departure Impression Primary Impression: Abdominal pain Disposition: HOME, SELF-CARE Condition: Stable Departure-Patient Inst. Referrals: LUCY SORIA DO (PCP/Family) Primary Care Physician NGHIA ARGUELLO DO Mar 06, 2019 17:33
[2019-03-06] MEDS ORDERED: NS 100 ML (IVPB) BAG IV ONE (18:00)
[2019-03-06] MEDS ORDERED: CATHETER FLUSH 10 ML SYR IV PRN (18:00)
[2019-03-06] MEDS ORDERED: IOHEXOL 350 MG/ML 100 ML (OMNIPAQUE 350) VIAL IV ONE (18:00)
[2019-03-06] MEDS ORDERED: HOLD METFORMIN - RECEIVED CONTRAST 20 ML VIAL IV SCH (18:00)
[2019-03-06 18:13] LABS: BASOPHILS % (AUTO) 0 % (0-10); EOSINOPHILS % (AUTO) 0 % (0-10); HEMATOCRIT 44 % (40-54); LYMPHOCYTES # (AUTO) 1.1 X 10^3 (1.0-4.0); LYMPHOCYTES % (AUTO) 10 % (12-44); MEAN CORPUSCULAR HEMOGLOBIN 33 PG (25-34); MEAN CORPUSCULAR HGB CONC 34 G/DL (32-36); MEAN CORPUSCULAR VOLUME 95 FL (80-99); MONOCYTES # (AUTO) 0.3 X 10^3 (0.0-1.0); MONOCYTES % (AUTO) 3 % (0-12); NEUTROPHILS # (AUTO) 9.6 X 10^3 (1.8-7.8); NEUTROPHILS % (AUTO) 87 % (42-75); PLATELET COUNT 209 10^3/uL (130-400)
[2019-03-06 18:24] LABS: BUN/CREATININE RATIO 19; CALCIUM 9.4 MG/DL (8.5-10.1); CARBON DIOXIDE 20 MMOL/L (21-32); CHLORIDE 106 MMOL/L (98-107); CREATININE SERUM 1.09 MG/DL (0.60-1.30); GFR ESTIMATED > 60; GLUCOSE 142 MG/DL (70-105); POTASSIUM 3.8 MMOL/L (3.6-5.0); SODIUM 141 MMOL/L (135-145)
[2019-03-06 18:25] LABS: ALANINE AMINOTRANSFERASE 20 U/L (0-55); ALBUMIN 4.6 GM/DL (3.2-4.5); ALKALINE PHOSPHATASE 85 U/L (40-136); BILIRUBIN,DIRECT < 0.2 MG/DL (0.0-0.3); BILIRUBIN,INDIRECT 0.4 MG/DL; BILIRUBIN,TOTAL 0.6 MG/DL (0.1-1.0); TOTAL PROTEIN 7.5 GM/DL (6.4-8.2)
[2019-03-06 18:26] LABS: LIPASE 22 U/L (8-78)
[2019-03-06 18:30] LABS: BAND NEUTROPHILS 3 %; BASOPHILS % (MANUAL) 0 %; EOSINOPHILS % (MANUAL) 0 %; LYMPHOCYTES % (MANUAL) 12 %; MONOCYTES % (MANUAL) 4 %; NEUTROPHILS % (MANUAL) 81 %
[2019-03-06 18:41] LABS: BILIRUBIN,URINE NEGATIVE (NEGATIVE); CLARITY,URINE CLEAR; COLOR,URINE YELLOW; GLUCOSE, URINE (UA) NEGATIVE (NEGATIVE); KETONES,URINE 2+ (NEGATIVE); LEUKOCYTE ESTERASE ,URINE NEGATIVE (NEGATIVE); NITRITE,URINE NEGATIVE (NEGATIVE); PROTEIN,URINE NEGATIVE (NEGATIVE); UROBILINOGEN,URINE 0.2 MG/DL (NORMAL)
[2019-03-06 18:42] LABS: BACTERIA,URINE NEGATIVE /HPF; WBC,URINE RARE /HPF
--- NOTE | 2019-03-06 19:01 | Diagnostic Imaging Report ---
PROCEDURE: CT abdomen and pelvis with contrast. TECHNIQUE: Multiple contiguous axial images were obtained through the abdomen and pelvis after administration of intravenous contrast. Auto Exposure Controls were utilized during the CT exam to meet ALARA standards for radiation dose reduction. INDICATION: Right lower quadrant abdominal pain There is low-density throughout the liver indicating steatosis. No focal hepatic, gallbladder, biliary tree, pancreatic, adrenal gland or splenic abnormality is identified. Kidneys are unremarkable although there is slight increased density surrounding the right renal pelvis and ureter indicating edema or inflammation. There is mild dilatation of the right ureter, however, both ureters are patent to the level of the ureterovesical junction. There is questionable mild mural thickening of the right trigone. Partially opacified urinary bladder is incompletely distended but otherwise unremarkable. There is no evidence of free fluid within the abdomen or pelvis. There is no evidence of pathologic adenopathy. IMPRESSION: Hepatic steatosis and mild prominence of right renal collecting system and ureter possibly related to recent stone passage. Suggestion of right trigonal mural thickening may be related to ureterocele or inflammation versus edema from recent stone passage. If symptoms continue, consideration could be given to cystoscopy. Dictated by: Dictated on workstation # [id number]
[2019-03-06] MEDS ORDERED: IBUP-1780 PO (19:27)
[2019-03-06 19:37] VITALS: BP 138/72
== END 2019-03-06 19:34 | disposition home or self-care (01) ==
LOC: EDUNIT# 17:24 → ER FS 17:25
DX: R10.31 Right lower quadrant pain (principal); G47.30 Sleep apnea, unspecified; Z99.89 Dependence on other enabling machines and devices; Z87.891 Personal history of nicotine dependence
CPT/HCPCS: 36415; 74177; 80048; 80076; 81000; 83690; 85007; 85027

== ENCOUNTER 2019-03-17 09:22 | Outpatient (RCR) | payer BC ==
[~2019-03-17 09:22] MED LIST changes: +IBUP-1780 PO
== END 2019-06-13 | disposition home or self-care (01) ==
LOC: LAB 09:22
PROVIDERS: ATTEND Urology
DX: N20.0 Calculus of kidney (principal)
CPT/HCPCS: 36415; 82140; 82340; 82507; 82570; 83735; 83945; 83986; 84105; 84133; 84300; 84392; 84560; 88300